=== PATIENT | female | born 1940 | race Caucasian/White ===

== ENCOUNTER 2016-10-19 15:28 | Outpatient (CLI) | payer OTHER ==
[2014-09-13 12:28] VITALS: BP 137/71
--- NOTE | 2016-10-19 19:54 | Diagnostic Imaging Report ---
THIAGO KAMARA (KLAUDIA) - OP~ [facility] [address] [address] [address] ~ ~ ~ ~ Report Submission Date: Oct 19, 2016 4:15:53 PM CDT Patient ~ Study Name: ROSETTE SUGGS ~ Date: Oct 19, 2016 3:35:09 PM CDT ~ Modality Type: CR Gender: F ~ Description: ABDOMEN : 40 ~ Institution: [facility] Physician: THIAGO KAMARA (KLAUDIA) - OP ~ ~ ~ ~ Obstructive series CLINICAL HISTORY: ~ Nausea and constipation. FINDINGS: ~ Examination of the abdomen in supine and upright views demonstrates stool throughout the colon. ~Degenerative changes and scoliosis are present in the lumbar spine convex to the right. ~Degenerative changes are evident in the hips. ~There is no evidence of obstruction or free air. ~Properitoneal fat lines are preserved. IMPRESSION: ~ Stool throughout the colon. ~ Lumbar spondylosis and scoliosis. ~ Electronically signed on Oct 19, 2016 4:15:53 PM CDT by: Vic VILLALBA
== END 2016-10-19 15:38 | disposition home or self-care (01) ==
LOC: RAD 15:28
PROVIDERS: ATTEND Nurse Practitioner Family
DX: K59.00 Constipation, unspecified (principal)
CPT/HCPCS: 74020

== ENCOUNTER 2016-10-22 08:42 | Outpatient (CLI) | payer OTHER ==
[2014-09-13 12:28] VITALS: BP 137/71
[2016-10-22 09:12] LABS: BASOPHILS % 1.3 (0.0-1.5); MEAN CORPUSCULAR HEMOGLOBIN 31.4 pg (28.0-34.0); MEAN CORPUSCULAR VOLUME 94.3 fl (80.0-100.0); MONOCYTES % 6.1 % (0.0-11.0); NEUTROPHILS # 2.5 # k/uL (1.4-7.7)
[2016-10-22 09:14] LABS: APPEARANCE,URINE Clear (CLEAR); COLOR,URINE Yellow (YELLOW); OCCULT BLOOD,URINE Negative (NEGATIVE); PH URINE 5.5 (5.0 - 8.0); UROBILINOGEN URINE 0.2 Eu (0.2-1.0)
[2016-10-22 09:58] LABS: eGFR (African) > 60; eGFR (Non-African) > 60
== END 2016-10-22 08:54 ==
LOC: LAB 08:42
PROVIDERS: ATTEND Nurse Practitioner Family
DX: R53.83 Other fatigue (principal)
CPT/HCPCS: 36415; 80053; 80061; 81002; 84439; 84443; 85025; 87086

== ENCOUNTER 2017-03-13 16:36 | Outpatient (CLI) | payer OTHER ==
[2014-09-13 12:28] VITALS: BP 137/71
--- NOTE | 2017-03-13 17:28 | Diagnostic Imaging Report ---
THIAGO KAMARA (ORDER FILLER) - OP [facility] [address] [facility] [address], [place]. [address] Report Submission Date: Mar 13, 2017 5:27:19 PM SPRING TESTER Patient Study Name: ROSETTE SUGGS Date: Mar 13, 2017 4:44:09 PM SPRING TESTER Modality Type: CR Gender: F Description: ABDOMEN : 40 Institution: [facility] Physician: THIAGO KAMARA (ORDER FILLER) - OP Examination: Obstruction series History: Abdominal discomfort Findings: 3 views obtained of the abdomen. No abnormal dilation of the large or small bowel. Air and stool throughout the large bowel. No suspicious calcification projecting over the renal fossa or the lower pelvic region. Pelvic phleboliths. Degenerative changes and curvature to the thoracolumbar spine. Impression: Significant large bowel stool - constipation. No obstruction. No suspicious calcifications by plain film sensitivity. Electronically signed on Mar 13, 2017 5:27:19 PM SPRING TESTER by: Kevin VILLALBA
== END 2017-03-13 16:37 ==
LOC: RAD 16:36
PROVIDERS: ATTEND Nurse Practitioner Family
DX: K59.00 Constipation, unspecified (principal)
CPT/HCPCS: 74020

== ENCOUNTER 2017-03-18 14:45 | Outpatient (CLI) | payer OTHER ==
[2014-09-13 12:28] VITALS: BP 137/71
--- NOTE | 2017-03-18 15:20 | Diagnostic Imaging Report ---
THIAGO KAMARA (KLAUDIA) - OP [facility] [place] [facility] [address] [facility].[address] [address] Report Submission Date: Mar 18, 2017 3:18:43 PM ELECTROENCEPHALOGRAPHIC TECHNICIAN Patient Study Name: ROSETTE SUGGS Date: Mar 18, 2017 3:00:28 PM ELECTROENCEPHALOGRAPHIC TECHNICIAN Modality Type: CR Gender: F Description: ABDOMEN : 40 Institution: [facility] [place] [facility] Physician: THIAGO KAMARA (KLAUDIA) - OP Examination: Obstruction series History: Abdominal discomfort. Diarrhea Findings: 3 views obtained of the abdomen. No abnormal dilation of the large or small bowel. Air and stool throughout the large bowel. No suspicious calcification projecting over the renal fossa or the lower pelvic region. Osseous structures demonstrate curvature and degenerative changes. Impression: No obstruction. No suspicious calcifications by plain film sensitivity. Electronically signed on Mar 18, 2017 3:18:43 PM ELECTROENCEPHALOGRAPHIC TECHNICIAN by: Kevin VILLALBA
== END 2017-03-18 14:50 ==
LOC: RAD 14:45
PROVIDERS: ATTEND Nurse Practitioner Family
DX: K59.00 Constipation, unspecified (principal)
CPT/HCPCS: 74020

== ENCOUNTER 2017-03-22 14:48 | Outpatient (CLI) | payer OTHER ==
[2014-09-13 12:28] VITALS: BP 137/71
--- NOTE | 2017-03-22 15:51 | Diagnostic Imaging Report ---
THIAGO KAMARA (KLAUDIA) - OP [facility] [address] [facility].[address] [address] Report Submission Date: Mar 22, 2017 3:24:33 PM HEEL SEWER Patient Study Name: ROSETTE SUGGS Date: Mar 22, 2017 2:57:03 PM HEEL SEWER Modality Type: DX Gender: F Description: ABDOMEN : 40 Institution: [facility] Physician: THIAGO KAMARA (KLAUDIA) - OP Examination: Obstruction series History: Abdominal discomfort Findings: 3 views obtained of the abdomen. No abnormal dilation of the large or small bowel. Air and stool throughout the large bowel. No suspicious calcification projecting over the renal fossa or the lower pelvic region. Pelvic phleboliths. Osseous structures demonstrate degenerative disease and curvature. Impression: Large bowel stool. No obstruction. No suspicious calcifications by plain film sensitivity. Electronically signed on Mar 22, 2017 3:24:33 PM HEEL SEWER by: Kevin VILLALBA
== END 2017-03-22 14:50 ==
LOC: RAD 14:48
PROVIDERS: ATTEND Nurse Practitioner Family
DX: K59.00 Constipation, unspecified (principal)
CPT/HCPCS: 74020

== ENCOUNTER 2017-12-30 13:28 | Outpatient (CLI) | payer OTHER ==
[2014-09-13 12:28] VITALS: BP 137/71
== END 2017-12-30 13:30 ==
LOC: LAB 13:28
PROVIDERS: ATTEND Psychiatry & Neurology Neurology
DX: G50.0 Trigeminal neuralgia (principal)
CPT/HCPCS: 36415; 80299